=== PATIENT | male | born 1985 | race Asian ===

== ENCOUNTER 2023-12-30 23:47 | Emergency (ER) | payer OTHER ==
[~2023-12-30] VITALS: Ht 175.3 cm; Wt 77.1 kg
[2023-12-31 00:01] VITALS: TEMP 98.5
[2023-12-31 00:26] LABS: BASOPHILS # (AUTO) 0.1 K/uL (0.0-0.2); BASOPHILS % (AUTO) 0.7 % (0.0-2.0); EOSINOPHILS # (AUTO) 0.3 K/uL (0.0-0.7); EOSINOPHILS % (AUTO) 2.9 % (0.0-6.0); HEMATOCRIT 42 % (39-51); HEMOGLOBIN 14.6 g/dL (13.5-17.5); LYMPHOCYTES # (AUTO) 2.8 K/uL (0.8-4.8); MEAN CORPUSCULAR HEMOGLOBIN 32 PG (26.0-33.0); MEAN CORPUSCULAR HGB CONC 34 g/dl (31.0-36.0); MEAN CORPUSCULAR VOLUME 94 fL (80-96); MONOCYTES # (AUTO) 0.6 K/uL (0.1-1.30); MONOCYTES % (AUTO) 5.7 % (2.0-12.0); NEUTROPHILS # (AUTO) 6.3 K/uL (1.8-8.9); NEUTROPHILS % (AUTO) 62.7 % (43.0-81.0); PLATELET COUNT (AUTO) 346 K/uL (150-450); RED CELL DISTRIBUTION WIDTH 13.4 % (11.5-15.0); WHITE BLOOD COUNT (AUTO) 10.1 K/uL (4.3-11.0)
[2023-12-31 00:37] LABS: CALCIUM, SERUM 8.8 mg/dL (8.5-10.1); CARBON DIOXIDE 25 mmol/L (21-32); CHLORIDE 105 mmol/L (98-107); CREATININE 1.2 mg/dL (0.6-1.3); GLUCOSE 141 mg/dL (74-106); POTASSIUM 3.1 mmol/L (3.5-5.1); SODIUM SERUM 140 mmol/L (136-145); UREA NITROGEN, BLOOD 20 mg/dL (7-18)
[2023-12-31 00:50] LABS: NT-PRO BNP 25 pg/mL (0-125)
[2023-12-31 00:58] LABS: MAGNESIUM 2.2 mg/dL (1.8-2.4)
[2023-12-31] MEDS ORDERED: ASPIRIN 325 MG TABLET ONE (01:04)
[2023-12-31] MEDS: ASPIRIN 325 MG TABLET PO ONE (01:07)
[2023-12-31 01:13] LABS: THYROID STIMULATING HORMONE 4.69 uIU/mL (0.358-3.74)
[2023-12-31] MEDS ORDERED: POTASSIUM CHLORIDE 20 MEQ TAB.PRT.SR PO ONE (01:36)
[2023-12-31] MEDS: POTASSIUM CHLORIDE 20 MEQ TAB.PRT.SR PO ONE (01:43)
[2023-12-31 05:00] VITALS: BP 139/93; O2SAT 95
== END 2023-12-31 06:38 | disposition short-term general hospital (02) ==
LOC: ER 23:53
DX: I49.8 Other specified cardiac arrhythmias (principal); R79.89 Other specified abnormal findings of blood chemistry; E87.6 Hypokalemia
CPT/HCPCS: 36415; 71045-TC; 80048-TC; 83735-TC; 83880; 84443-TC; 84484-TC; 85025-TC